=== PATIENT | female | born 1965 | race Caucasian/White ===

== ENCOUNTER 2017-09-08 12:13 | Day surgery (SDC) | payer OTHER ==
[~2017-09-08] VITALS: Ht 157.5 cm; Wt 74.2 kg
[2017-09-08 13:07] VITALS: Ht 157.5 cm; Wt 74.2 kg
[2017-09-08] MEDS ORDERED: METF500T4 PO (13:20)
[2017-09-08 13:28] VITALS: BP 120/57; PULSE 85; RESP 16
--- NOTE | 2017-09-08 14:23 | OPPN ---
Date/Time of Note Date/Time of Note DATE: 09/08/17 TIME: 14:21 Operative Report Preoperative Diagnosis Abdominal pain Chronic diarrhea Postoperative Diagnosis Gastritis Small bowel biopsies taken to rule out celiac disease Operation/Procedure Performed Esophagogastroduodenoscopy and biopsy Colonoscopy and biopsy Surgeon see signature line virtual assistant None Anesthesia: moderate sedation Estimated blood loss: none Transfusion Required none Specimen Gastric biopsy Small bowel biopsy Random colon biopsy Grafts/Implants none Complications none MILDRED MARTINS MD Sep 08, 2017 14:23
[2017-09-08] MEDS ORDERED: FENTAnyl 50 MCG/ML VIAL ONE (14:31)
[2017-09-08] MEDS ORDERED: MIDAZOLAM 1 MG/ML 2 ML INJ ONE ×2 (14:31)
[2017-09-08 14:53] VITALS: BP 119/59; RESP 14
--- NOTE | 2017-09-09 10:01 | GILP ---
DATE OF PROCEDURE: NAME OF PROCEDURES: 1. Esophagogastroduodenoscopy and biopsy. 2. Colonoscopy and biopsy. SURGEON: iMldred Edgar MD PREOPERATIVE DIAGNOSES: 1. Abdominal pain. 2. Chronic diarrhea. POSTOPERATIVE DIAGNOSES: 1. Gastritis. 2. Gastric mucosal biopsies were taken for Helicobacter pylori test. 3. Small bowel biopsies were taken to rule out celiac disease. 4. Colonoscopy all the way to the cecum. 5. Random biopsies were taken to rule out microscopic colitis. 6. Internal hemorrhoids. INDICATION FOR THE PROCEDURE: Ms. Hayley Prieto is a 51-year-old female patient who had upper abdomin al pain, not responding to therapy. She also had chronic diarrhea. She was scheduled for endoscopy and colonoscopy for further evaluation. The procedures and possible complications were well explained to the patient. The patient understoo d and consented to the procedure. DESCRIPTION OF PROCEDURE: Under the influence of fentanyl and Versed, the gastroscope was carefully introduced into the esophagus and under direct vision, it was advanced to the stomach and through t he pylorus into the duodenal bulb and descending duodenum. FINDINGS: ESOPHAGUS: The mucosa was normal. STOMACH: Patient had gastritis with erosions. Gastric mucosal biopsies were taken for H. pylori te st. Small bowel biopsies were taken to rule out celiac disease. DUODENUM: Normal. The colonoscope was carefully introduced in the rectum and under direct vision, it was advanced all the way to the cecum. FINDINGS: The patient had normal colonic mucosa. Random biopsies were taken to rule out microscopi c colitis. She was noted to have internal hemorrhoids. She tolerated the procedures very well and there was no complication from the procedures. At the en d of the procedures, she was awake with stable vital signs and she was discharged home to the care o f her family. IMPRESSION: Please see postoperative diagnoses. PLAN: 1. Omeprazole 40 mg p.o. q.a.m. 2. Bentyl 10 mg p.o. t.i.d. before meals. 3. Questran 1 scoop full dissolved in a glass of water p.o. b.i.d. 4. Await histopathology reports. Dictated By: MILDRED JACQUES/SERGIO Conf#: [id number] DID#: [id number]
== END 2017-09-08 15:17 | disposition home or self-care (01) ==
LOC: GIL 12:13
PROVIDERS: ATTEND Internal Medicine Gastroenterology
DX: R10.10 Upper abdominal pain, unspecified (principal); K29.50 Unspecified chronic gastritis without bleeding; K52.9 Noninfective gastroenteritis and colitis, unspecified; K25.9 Gastric ulcer, unspecified as acute or chronic, without hemorrhage or perforation; K64.8 Other hemorrhoids
CPT/HCPCS: 43239; 45380; 82962; 88305; 88312; J2250; J3010; Z7610